=== PATIENT | male | born 1980 | race Caucasian/White ===

== ENCOUNTER 2018-11-03 07:10 | Day surgery (SDC) | payer OTHER ==
[~2018-11-03] VITALS: Ht 175.3 cm; Wt 72.6 kg
[~2018-11-03 07:10] MED LIST: IBUPROFEN800 MG PO; NORCO 5-325 TA1 EACH PO; TYLENOL325 MG PO
--- NOTE | 2018-11-03 10:24 | NUR ---
11/03/18 1024 Gretchen Chiu 1020 PATIENT ARRIVES TO PACU UNRESPONSIVE TO PAIN. ORAL AIRWAY IN PLACE. RESP EVEN AND UNLABORED. MASK AT 8 LITERS. 1021 PATIENT OPENS EYES SPONTANEOUSLY, SITS UP IN BED. ORAL AIRWAY REMOVED. PATIENT LAYS BACK DOWN, BACK TO SLEEP. RESP EVEN AND UNLABORED, MASK CONTINUED AT 8 LITERS.
--- NOTE | 2018-11-03 10:49 | NUR ---
1045- PT RETURNS TO ROOM 10 FROM PACU ON RA. PT AWAKE AND ORIENTED. PT REPORTS 5/10 PAIN IN SURGICAL SITE. SURGICAL DRESSING C/D/I. PT PROVIDED WITH WATER, COFFEE, AND CRACKERS. SCDS ON AND APPLIED. [facility] IN ROOM WITH CALL LIGHT
--- NOTE | 2018-11-03 11:08 | NUR ---
PT MEDICATED FOR PAIN. SEE EMAR. PT DENIES NAUSEA. PT C/O HEADACHE AND 4/10 PAIN IN SURGICAL SITE. PT HAS WATER AND COFFEE AT BEDSIDE AND DENIES FURTHER NEEDS. CALL LIGHT WITH [facility].
[2018-11-03] MEDS ORDERED: ULTRAM50 MG PO (11:21)
--- NOTE | 2018-11-03 11:57 | NUR ---
1145- [facility] TO RN STATION TO REPORT PT USED BATHROOM. PT DENIES NAUSEA AND TOLERATES PO FLUIDS/FOOD. PT REPORTS DECREASE IN PAIN LEVEL. PT MEETS DC CRITERIA. IV DC'D WNL. TIP INTACT. PRESSURE DRESSING APPLIED. 1150- DC INSTRUCTIONS WITH PRECAUTIONS PROVIDED TO PT. PT VERBALIZES UNDERSTANDING AND DENIES FURTHER QUESTIONS. PRESCRIPTION GIVEN. PT TRANSPORTED IN [facility] BY [facility] IN STABLE CONDITION
--- NOTE | 2018-11-03 12:09 | NUR ---
REPORT CALLED TO [facility]
--- NOTE | 2018-11-03 14:55 | OR ---
[facility] [address] [place], [place] [address] Signed DATE OF OPERATION: 11/03/2018 SURGEON: Clemencia Lyons MD PREOPERATIVE DIAGNOSIS: Small reducible right inguinal hernia. POSTOPERATIVE DIAGNOSIS: Small reducible right direct inguinal hernia. PROCEDURE: Right Monica onlay mesh inguinal herniorrhaphy. ESTIMATED BLOOD LOSS: None. INDICATIONS: Veena is a 38-year-old gentleman who came in 2012 for repair of a left inguinal hernia with onlay mesh. He has noticed swelling and pain in the right groin in the last couple of years. He felt like it was increasing in size. He also thought the pain was becoming more frequent. He had been to his primary care provider. He was asked to see me for the right inguinal hernia. On exam, he had a small, but reducible inguinal hernia. I reviewed with Veena the nature of an inguinal hernia. We also reviewed the intraoperative and postop findings. We had discussed primary suture repair versus mesh repair. Of course, he has been to a mesh repair on the left side. He understands there is risk of surgery including, but not limited to bleeding, infection, scarring, change in contour of the skin, damage to the nerves, ischemic orchitis, recurrent hernias, and chronic pain. He had expressed understanding and wished to proceed. PROCEDURE NOTE: I met with Veena in our preop area. We both agreed it was the right groin. We marked that appropriately. After this, Veena was taken into our operating room and placed in the supine position under general endotracheal tube anesthesia. He was given preoperative antibiotics along with subcutaneous heparin. SCDs were utilized. He was then prepped and draped in usual sterile fashion. We then measured out his incision in the right groin to be a mirror image of the left incision. This was developed through the skin sharply with a knife and carried down through the tissue bluntly and with the cautery. The external oblique fascia was opened along its length. The cord structures were elevated at the level of pubic tubercle with the help of Natacha drain. He did have a small, but reducible direct right inguinal hernia. There was no hernia component at the Electronically Signed By: CLEMENCIA LYONS MD 11/03/18 1455 PATIENT NAME: VEENA DARBY OPERATIVE REPORT DATE OF : 78 REPORT #: [id number] PHYSICIAN: CLEMENCIA LYONS MD PCP: ALFONSO FRIEDMAN MD REPORT IS CONFIDENTIAL AND NOT TO BE RELEASED WITHOUT AUTHORIZATION [facility] [address] [place] [id number] Signed deep ring. We imbricated the floor of the inguinal canal with a running 2-0 PDS suture from the pubic tubercle up to the deep ring. After this, a piece of flat Prolene mesh was cut to fit his groin and a slit was made in the mesh to accommodate the cord structures at the level of deep ring. We then held the mesh in place medially and laterally with the help of running #1 Prolene suture. Local anesthetic was then injected in the entire operative field. The wound was irrigated and suctioned out until clear. The external oblique fascia was closed over the repair with the help of a running 2-0 PDS suture. We had protected the ilioinguinal and iliohypogastric nerves throughout the case. The Alnoa's fascia was then reapproximated with a running 3-0 Monocryl suture. The dermis was reapproximated with interrupted 3-0 subcuticular Monocryl sutures. The skin edges were reapproximated with a running 6-0 fast absorbing plain gut suture. Dry gauze and tape were then applied. Veena was then awakened from his anesthesia, extubated in the OR, and taken to recovery room in stable condition. Clemencia Lyons MD ALB/MODL /[id number] cc: MD Silvestre Corona MD Copies: CLEMENCIA LYONS MD, LELAND MD ~ Electronically Signed By: CLEMENCIA LYONS MD 11/03/18 1455 PATIENT NAME: VEENA DARBY OPERATIVE REPORT DATE OF : 78 REPORT #: [id number] PHYSICIAN: CLEMENCIA LYONS MD PCP: ALFONSO FRIEDMAN MD REPORT IS CONFIDENTIAL AND NOT TO BE RELEASED WITHOUT AUTHORIZATION
== END 2018-11-03 11:50 | disposition home or self-care (01) ==
LOC: DS 07:10
PROVIDERS: Colon & Rectal Surgery
PROC: 0YU50JZ Supplement Right Inguinal Region with Synthetic Substitute, Open Approach (ICD-10-PCS; principal; 2018-11-03 08:00)
DX: K40.90 Unilateral inguinal hernia, without obstruction or gangrene, not specified as recurrent (principal); Z88.5 Allergy status to narcotic agent; Z86.19 Personal history of other infectious and parasitic diseases; Z87.891 Personal history of nicotine dependence
CPT/HCPCS: 00830; C1781; J0690; J1100; J1644; J1885; J2250; J2405; J2704; J3010; J7120

== ENCOUNTER 2020-10-28 14:27 | Emergency (ER) | payer OTHER ==
[~2020-10-28] VITALS: Ht 175.3 cm; Wt 72.6 kg
[~2020-10-28 14:27] MED LIST changes: +ULTRAM50 MG PO
== END 2020-10-28 17:18 | disposition home or self-care (01) ==
LOC: ED 14:27
DX: R10.11 Right upper quadrant pain (principal); Z87.891 Personal history of nicotine dependence; Z88.5 Allergy status to narcotic agent
CPT/HCPCS: 36415; 74177; 80053; 81001; 82150; 83690; 85025; 99284-25; J7030; Q9967

== ENCOUNTER 2021-10-11 08:44 | Emergency (ER) | payer OTHER ==
[~2021-10-11] VITALS: Ht 175.3 cm; Wt 72.6 kg
[2021-10-11] MEDS ORDERED: IBUPROFEN200 M1 PO (09:19)
[2021-10-11] MEDS ORDERED: TYLENOL325 M1 PO (09:19)
[2021-10-11] MEDS ORDERED: CENTANY30 GM TOP (09:20)
[2021-10-11] MEDS ORDERED: BACTRIM DS TAB1 EACH PO (09:20)
== END 2021-10-11 09:42 | disposition home or self-care (01) ==
LOC: ED 08:44
DX: K13.0 Diseases of lips (principal); K21.9 Gastro-esophageal reflux disease without esophagitis; G43.909 Migraine, unspecified, not intractable, without status migrainosus; Z87.891 Personal history of nicotine dependence; Z88.5 Allergy status to narcotic agent
CPT/HCPCS: 99283; A9270